=== PATIENT | male | born 2000 | race Caucasian/White ===

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

== ENCOUNTER 2021-08-02 00:30 | Emergency (ER) | payer OTHER ==
[~2021-08-02] VITALS: Ht 182.8 cm; Wt 124.7 kg
[2021-08-02 00:48] VITALS: BP 134/69
[2021-08-02] MEDS ORDERED: CEPHALEXIN500 M1 PO (03:41)
== END 2021-08-02 03:44 | disposition home or self-care (01) ==
LOC: ED 00:30
DX: S91.112A Laceration without foreign body of left great toe without damage to nail, initial encounter (principal); W26.8XXA Contact with other sharp object(s), not elsewhere classified, initial encounter; Y93.89 Activity, other specified; Y92.89 Other specified places as the place of occurrence of the external cause; Y99.8 Other external cause status

== ENCOUNTER 2022-02-08 18:12 | Emergency (ER) | payer OTHER ==
[~2022-02-08 18:12] MED LIST changes: +CEPHALEXIN500 M1 PO
[2022-02-08 18:34] VITALS: BP 140/72
[2022-02-08 18:39] LABS: BASO % 0.5 % (0.0-1.0); EOS # 0.2 10*3/uL (0.0-0.4); EOS % 1.9 % (1.0-4.0); HEMATOCRIT 43.2 % (42.0-52.0); LYMPH # 2.8 10*3/uL (1.3-4.4); LYMPH % 33.5 % (27.0-41.0); MEAN CELL VOLUME 89.6 fl (80.0-94.0); MEAN CORPUSCULAR HGB 30.1 pg (27.0-31.0); MEAN CORPUSCULAR HGB CONC 33.6 g/dl (33.0-37.0); MEAN PLATELET VOLUME 11.3 fl (9.6-12.3); MONO # 0.7 10*3/uL (0.1-1.0); MONO % 8.4 % (3.0-9.0); NEUT # 4.6 10*3/uL (2.3-7.9); NEUT % 54.9 % (47.0-73.0); PLATELET COUNT AUTOMATED 220 10*3/uL (130-400); RED BLOOD COUNT 4.82 10*6/uL (4.50-5.90); RED CELL DISTRI WIDTH 13.4 % (0-14.5); WHITE BLOOD COUNT 8.4 10*3/uL (4.8-10.8)
[2022-02-08 18:49] LABS: ACT PARTIAL THROMBO TIME 28.4 SECONDS (20.0-32.1)
[2022-02-08 18:53] LABS: ALKALINE PHOSPHATASE 74 U/L (45-117); BUN 13 mg/dl (7-24); CHLORIDE 112 mmol/L (98-107); CREATININE 0.94 mg/dL (0.70-1.30); LIPASE 86 U/L (73-393); POTASSIUM 3.6 mmol/L (3.5-5.1); SGOT/AST 17 IU/L (3-35); SGPT/ALT 29 U/L (12-78); SODIUM 143 mmol/L (136-145); TOTAL PROTEIN 6.7 gm/dL (6.4-8.2)
== END 2022-02-08 20:59 | disposition home or self-care (01) ==
LOC: ED 18:12
PROVIDERS: Nurse Practitioner Family
DX: R07.9 Chest pain, unspecified (principal); Z90.89 Acquired absence of other organs

== ENCOUNTER 2022-05-01 20:03 | Emergency (ER) | payer OTHER ==
[~2022-05-01] VITALS: Ht 182.8 cm; Wt 113.4 kg
[2022-05-01 20:03] VITALS: BP 154/80
== END 2022-05-01 23:35 | disposition home or self-care (01) ==
LOC: ED 20:03
DX: S86.912A Strain of unspecified muscle(s) and tendon(s) at lower leg level, left leg, initial encounter (principal); F17.200 Nicotine dependence, unspecified, uncomplicated; W20.8XXA Other cause of strike by thrown, projected or falling object, initial encounter; Y93.89 Activity, other specified; Y92.89 Other specified places as the place of occurrence of the external cause; Y99.8 Other external cause status

== ENCOUNTER 2022-05-02 18:14 | Emergency (ER) | payer OTHER ==
[~2022-05-02] VITALS: Ht 182.8 cm; Wt 113.4 kg
[2022-05-02 18:57] VITALS: BP 140/84
== END 2022-05-02 20:22 | disposition left against medical advice (07) ==
LOC: ED 18:14
DX: Z53.21 Procedure and treatment not carried out due to patient leaving prior to being seen by health care provider (principal)

== ENCOUNTER 2022-05-04 16:40 | Emergency (ER) | payer OTHER ==
[2022-05-04 17:49] VITALS: BP 134/71
== END 2022-05-04 20:19 | disposition home or self-care (01) ==
LOC: ED 16:40
DX: S89.92XA Unspecified injury of left lower leg, initial encounter (principal); F17.200 Nicotine dependence, unspecified, uncomplicated; Z98.890 Other specified postprocedural states; W18.39XA Other fall on same level, initial encounter; Y93.89 Activity, other specified; Y92.89 Other specified places as the place of occurrence of the external cause; Y99.8 Other external cause status

== ENCOUNTER 2025-03-14 23:18 | Emergency (ER) | payer BC ==
[~2025-03-14] VITALS: Ht 182.8 cm; Wt 153.3 kg
[2025-03-14 23:42] VITALS: BP 131/74
[2025-03-15] MEDS ORDERED: METHOCARBAMOL 750 MG TAB PO ONE (02:45)
[2025-03-15] MEDS ORDERED: Ketorolac Tromethamine 60 MG/2 ML VIAL IM ONE (02:45)
[2025-03-15] MEDS ORDERED: METHOCARBAMOL750 M1 PO (02:52)
[2025-03-15] MEDS ORDERED: NAPROSYN500 MG PO (02:52)
== END 2025-03-15 03:01 | disposition home or self-care (01) ==
LOC: ED 23:18
DX: R10.11 Right upper quadrant pain (principal); M54.9 Dorsalgia, unspecified; Z90.49 Acquired absence of other specified parts of digestive tract; Z98.890 Other specified postprocedural states